=== PATIENT | female | born 2000 | race Caucasian/White ===

== ENCOUNTER 2024-12-10 14:55 | Outpatient (AMB) | payer OTHER, SELFPAY ==
--- NOTE | 2024-12-10 15:00 | A.OFFPC_ITS ---
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/PE last papsmear at [place] 05/28/24 Regional Account Manager Required: No Is last menstrual period known: Yes Last menstrual period: 11/14/24 Allergies No Known Allergies Allergy (Verified 12/15/24 20:35) Medication List - Last Reconciled 12/10/24 by Anna Villafana MD levonorgestrel-ethinyl estrad 0.1-20 mg-mcg (Vienva) 1 tab PO QAM metronidazole 0.75% appl topical BID sulfacetamide sodium-sulfur 10-5 % (w/w) topical DAILY Tobacco use date assessed: 12/10/24 Dental Screening Dental Screen Date: 12/10/24 Did you have a dental visit in the last 12 months?: Yes Did you have a dental problem in the last 6 months where you did not have access to dental care?: No Was dental information given to patient?: Patient has dentist 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 The patient reports experiencing generalized anxiety disorder, characterized by waking up with anxiety about various issues, which has been more pronounced recently due to academic pressures. She describes the anxiety as persistent, with no physical symptoms like palpitations, but mentions difficulty in controlling her thoughts. The anxiety does not interfere with her sleep, and she has not experienced panic attacks. The patient has a history of rosacea, for which she uses sulfacetamide and sunscreen as part of her management plan. She initiated treatment through a telehealth consultation and reports satisfactory results with the current regimen. Her past medical history includes an appendectomy performed in 2012, with no complications In terms of preventative care, the patient is up-to-date with her vaccinations, including COVID-19, Hepatitis B, MMR, Varicella, and Influenza. She had to repeat some vaccinations due to negative titers required for school. 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 1. Little interest or pleasure in doing things: not at all 2. Feeling down, depressed, or hopeless: not at all 3. Trouble falling or staying asleep, or sleeping too much: not at all 4. Feeling tired or having little energy: not at all 5. Poor appetite or overeating: not at all 6. Feeling bad about yourself - or that you are a failure or have let yourself or your family down: not at all 7. Trouble concentrating on things, such as reading the newspaper or watching television: not at all 8. Moving or speaking so slowly that other people could have noticed. Or the opposite - being so fidgety or restless that you have been moving around a lot more than usual: not at all 9. Thoughts that you would be better off or of hurting yourself in some way: not at all Total score: 0 Depression Screening Interpretation: Negative Depression Screening Done: Yes 24955 - PHQ-9 Billing: Yes Source: Developed by Drs. Ganesh Levin, Tisha Allen, Daquan Bashir and colleagues, with an educational capo from [employer]. Thrive Questionnaire Date Thrive assessed: 12/09/24 I am a: Patient What is your living situation today?: I have a steady place to live Within the past 12 months, did the food you bought not last and you didn't have the money to get more?: Never true Within the past 12 months, did you worry whether your food would run out before you got money to buy more?: Never true Do you have trouble paying for medicines?: No Do you have trouble getting transportation to medical appointments?: No Do you have trouble paying your heating and electricity bill?: No Do you have trouble taking care of your child, family member or friend?: No Do you have trouble with day-to-day activities such as bathing, preparing meals, shopping, managing finances, etc.?: No Are you currently unemployed and looking for a job?: I choose not to answer this question Are you interested in more education?: I choose not to answer this question Please select the resources that you would like help with: None Currently or been in a relationship where the following occur: No concerns reported THRIVE Score: 0 AUDIT C Alcohol Use Questionnaire (AUDIT-C) 1. How often do you have a drink containing alcohol?: Monthly or less 2. How many drinks containing alcohol do you have on a typical day when you are drinking?: 1 or 2 3. How often do you have six or more drinks on one occasion?: Never Total Score: 1 Score Reviewed/Action Taken: Yes ELIS-7 AMB Questionnaire ELIS-7 Date ELIS - 7 assessed: 12/10/24 Feeling nervous, anxious, or on edge: 3 = Nearly every day Not being able to stop or control worryin = More than half the days Worrying too much about different things: 2 = More than half the days Trouble relaxin = Several days Being so restless that it is hard to sit still: 0 = Not at all Becoming easily annoyed or irritable: 1 = Several days Feeling afraid as if something awful might happen: 1 = Several days Total ELIS-7 score (0-4 normal; 5-9 mild; 10-14 moderate; 15-21 severe): 10 Source: Developed by Drs. Ganesh Levin, Tisha Allen, Daquan Bashir and colleagues, with an educational capo from [employer]. ELIS-7 Assessment Billing ELIS-7 Assessment Tool: ELIS-7 Assessment 97868 (Referred to Priya for assistance in getting an appointment to see a therapist, wants telehealth) Review of Systems Const Denies body aches, Denies fatigue, Denies fever(s), Denies headache(s) and Denies weakness Eyes Details: [facility] Denies change in vision ENT Denies dizziness, Denies headache(s), Denies nasal congestion, Denies nasal discharge and Denies sore throat Card Denies chest pain, Denies lightheadedness, Denies palpitations and Denies dyspnea Resp Denies chest congestion, Denies cough, Denies dyspnea and Denies wheezing GI Denies abdominal pain, Denies change in bowel habits and Denies heartburn Denies hematuria, Denies urinary frequency, Denies dysuria and Denies urinary urgency Musc Reports no additional complaints Skin/Breast Denies breast pain, Denies breast mass, Denies lesions and Denies rash Neuro Denies dizziness, Denies headache(s) and Denies weakness Psych Reports as per HPI Endo Denies fatigue, Denies polydipsia, Denies polyuria and Denies palpitations Justin/Lymph Denies easy bruising Aller/Immun Denies seasonal rhinorrhea and Denies wheezing Physical exam (Primary Care) Vital Signs: Last Vital Signs Temp 98.6 F 12/10/24 15:09 Pulse 99 12/10/24 15:09 Resp 16 12/10/24 15:09 BP 110/60 12/10/24 15:09 Pulse Ox 99 12/10/24 15:09 Oxygen Delivery Method Room Air 12/10/24 15:09 BMI result Body Mass Index 24.9 Tobacco/Smoking Status: Tobacco use Status Tobacco use date assessed 12/10/24 12/10/24 15:17 Patient Tobacco Use Status Never used Tobacco 12/10/24 15:17 e-Cigarette/Vaping Use Never Used 12/10/24 15:17 PHQ-9: PHQ-9 Score PHQ-9: Total score 0 12/10/24 15:50 Depression Screening Interpretation: Negative Thrive Assessment: Date of Thrive Assessment Date Thrive assessed 12/09/24 12/10/24 15:01 Currently or been in a relationship where the following occur: No concerns r eported Advance Care Planning discussion: Completed/Scanned Date of discussion: 12/10/24 Who was present: patient Forms completed: Health Care Proxy Time spent: 16-45 minutes Actual minutes spent: 2 Const General: no acute distress and alert Orientation/consciousness: patient oriented x3 HENMT Ears: external ears normal, TM's normal bilaterally and EAC's normal General nose exam: Normal external nose present Mouth: Normal oral and palatal mucosa present and moist mucous membranes Eyes General: appearance normal, both eyes and all related structures Conjunctivae: conjunctivae normal Sclerae: sclerae normal Pupils: Equal, round and reactive pupils present EOM: EOMs intact bilaterally Neck Neck: Yes full ROM, Yes no lymphadenopathy and Yes supple Chest Chest palpation & inspection: normal inspection of the chest Breast/axilla palpation: normal palpation of the breasts and normal palpation of the axillae Resp Effort & Inspection: normal respiratory effort and able to speak in complete sentences Auscultation: clear to auscultation bilaterally Cardio Rate: regular rate Rhythm: regular rhythm Heart sounds: S1 normal heart sound present and S2 normal heart sound present GI Palpation (GI): Soft to palpation, nontender and no masses Auscultation: normal bowel sounds General: Yes deferred (Currently being seen at [facility] by Linda Caldwell CNM) Back/Spine/Pelvis Back: No back tenderness Skin General skin exam: no rashes or lesions noted Neuro General: patient oriented x3, gait normal, tone normal, moves all extremities and no focal motor deficits Cranial nerves: Yes Equal, round and reactive pupils present Cognition (Neuro): normal cognition Extrem General: Yes full ROM, Yes no joint enlargement, Yes no clubbing, cyanosis or edema and Yes no calf tenderness Psych Appearance: grossly normal and well kempt Mental Status: mental status grossly normal Speech and movement: Normal speech and movement present Affect: normal affect Coding Level of Care Code Est Pt Prev Care 18-39y(65068) Diagnoses Annual visit for general adult medical examination with abnormal findings Z00.01 Generalized anxiety disorder F41.1 Rosacea L71.9 Additional Codes ELIS-7 Assessment Billing - ELIS-7 Assessment Tool: ELIS-7 Assessment 92257 ([id number]) PHQ-9 - 04227 - PHQ-9 Billing: Yes ([id number]) Vital Signs *Quality* - Advance Care Planning discussion: Completed/Scanned ([id number]) Vital Signs *Quality* - Time spent: 16-45 minutes ([id number]) Assessment & Plan Assessment & Plan (1) Annual visit for general adult medical examination with abnormal findings: Code(s): Z00.01 - Encounter for general adult medical examination with abnormal findings Plan: Will check appropriate labs. Recommended dental visit every 6 months and regular eye exams, at least every 2 years. Take adequate calcium in diet and vitamin-D 3 at 2000 IU per cap once a day, in addition to weight-bearing exercises to help maintain good muscle tone and weight control. Instructed to do self-breast exam, and recommended to get yearly mammogram, starting at age 40. Patient declined cervical cancer screening at present, up-to-date with vaccines (2) Generalized anxiety disorder: Code(s): F41.1 - Generalized anxiety disorder Category: Medical Plan: Referred to Priya Arceo, a mental health coordinator, for assistance in getting in to be seen by therapist, requesting telehealth visit (3) Rosacea: Code(s): L71.9 - Rosacea, unspecified Category: Medical Plan: Currently using metronidazole 0.75% cream Orders: Orders Alanine Aminotransferase 12/10/24 F41.1 - Generalized anxiety disorder, Z00.01 - Encounter for general adult medical examination with abnormal findings, Z13.1 - Encounter for screening for diabetes mellitus, Z13.220 - Encounter for screening for lipoid disorders Basic Metabolic Panel Fasting 12/10/24 F41.1 - Generalized anxiety disorder, Z00.01 - Encounter for general adult medical examination with abnormal findings, Z13.1 - Encounter for screening for diabetes mellitus, Z13.220 - Encounter for screening for lipoid disorders Lipid Panel 12/10/24 F41.1 - Generalized anxiety disorder, Z00.01 - Encounter for general adult medical examination with abnormal findings, Z13.1 - Encounter for screening for diabetes mellitus, Z13.220 - Encounter for screening for lipoid disorders Vitamin D 25-OH Total 12/10/24 F41.1 - Generalized anxiety disorder, Z00.01 - Encounter for general adult medical examination with abnormal findings, Z13.1 - Encounter for screening for diabetes mellitus, Z13.220 - Encounter for screening for lipoid disorders Aspartate Amino Transferase 12/10/24 F41.1 - Generalized anxiety disorder, Z00.01 - Encounter for general adult medical examination with abnormal findings, Z13.1 - Encounter for screening for diabetes mellitus, Z13.220 - Encounter for screening for lipoid disorders Complete Blood Count Auto Diff 12/10/24 F41.1 - Generalized anxiety disorder, Z00.01 - Encounter for general adult medical examination with abnormal findings, Z13.1 - Encounter for screening for diabetes mellitus, Z13.220 - Encounter for screening for lipoid disorders
[2024-12-10 15:09] VITALS: BP 110/60; PULSE 99; RESP 16; TEMP 37; O2SAT 99; BMI 24.9
== END 2024-12-10 15:54 | disposition home or self-care (01) ==
LOC: HO.HMCC 14:56
PROVIDERS: PCP Internal Medicine; Visit Provider Internal Medicine
DX: Z00.01 Encounter for general adult medical examination with abnormal findings (principal); F41.1 Generalized anxiety disorder; L71.9 Rosacea, unspecified; Z00.00 Encounter for general adult medical examination without abnormal findings

== ENCOUNTER → 2024-12-10 14:55 | Outpatient (BNVA) | payer OTHER, SELFPAY | PROVIDERS: PCP Internal Medicine; Visit Provider Internal Medicine | DX: Z00.01 Encounter for general adult medical examination with abnormal findings (principal); F41.1 Generalized anxiety disorder; L71.9 Rosacea, unspecified | CPT/HCPCS: 96127 ==

== ENCOUNTER 2025-02-24 06:50 | Outpatient (REF) | payer OTHER, SELFPAY ==
--- OUTSIDE RECORDS SUMMARY | 2025-02-24 06:52 | XMS_ITS | Clinical Summary ---
Author Organization [address] [facility] Address [address] [place] [phone] Phone Care Team Providers Care Computer Artist Name Role Phone Physician, No Pcp Primary Care Provider Unavaila ble Allergies No known active allergies Medications Vienva 0.1-20 mg-mcg per tablet Take 1 tablet by mouth 1 (one) time each day in the morning. 28 tablet 12 05/28/2024 Active Surgical History Surgery Date Site/Laterality Comments APPENDECTOMY Medical History Medical History Date Comments No pertinent past medical history Family History Medical History Relation Name Comments Heart disease Father Relation Name Status Comments Father Maternal Grandfather Maternal Grandmother Mother Alive Paternal Grandfather Alive Paternal Grandmother Alive Sister Alive Social History Tobacco Use Types Packs/Day Years Used Date Smoking Tobacco: Never Smokeless Tobacco: Never Alcohol Use Standard Drinks/Week Comments Never 0 (1 standard drink = 0.6 oz pur e alcohol) Comments No Sex and Gender Information Value Date Recorded Sex Assigned at Not on file Legal Sex Female 9:23 AM EST Gender Identity Not on file Sexual Orientation Not on file Obstetrics History Para Term AB IAB SAB Ectopic Multiple Livin g Live Births 0 0 0 0 0 0 0 0 Last Filed Vital Signs Vital Sign Reading Time Taken Comments Blood Pressure 109/85 05/28/2024 1:54 PM EDT Pulse 74 05/28/2024 1:54 PM EDT Temperature - - Respiratory Rate 18 05/28/2024 1:54 PM EDT Oxygen Saturation - - Inhaled Oxygen Concentration - - Weight 90.6 kg (199 lb 12.8 oz) 05/28/2024 1:54 PM EDT Height 170.2 cm (5' 7 ) 05/28/2024 1:54 PM EDT Body Mass Index 31.29 05/28/2024 1:54 PM EDT Plan of Treatment Health Maintenance Due Date Last Done Comments HPV Vaccines (1 - 3-dose series) 12/02/2014 Depression Screening 02/28/2024 HIV Screening 03/13/2024 Hepatitis C Screening 03/13/2024 Social Influencers of Health Screening 03/13/2024 COVID-19 Vaccine ( season) 2024 12/12/2023, 03/14/2021, 07/14/2020, Additional history exists Influenza Vaccine (#1) 2024 , 03/14/2021, 02/25/2020 Cervical Cancer Screening: Pap Smear 05/29/2027 05/28/2024 DTaP,Tdap,and Td Vaccines (2 - Td or Tdap) 07/09/2031 07/08/2021 RSV Immunization Adult Patients (1 - 1-dose 75+ series) 12/02/2074 Hepatitis B Vaccines Completed 12/12/2023, 10/30/19 24 MMR Vaccines Aged Out 12/18/2023 No longer eligi ble based on patient's age to complete this topic Varicella Vaccines Aged Out 12/18/2023 No longer eligible based on patient's age to complete this topic HIB Vaccines Aged Out No longer eligi ble based on patient's age to complete this topic Hepatitis A Vaccines Aged Out No long er eligible based on patient's age to complete this topic IPV Vaccines Aged Out No longer eligi ble based on patient's age to complete this topic Meningococcal ACWY Vaccine Aged Out N o longer eligible based on patient's age to complete this topic Meningococcal B Vaccine Aged Out No l onger eligible based on patient's age to complete this topic Pneumococcal Vaccine: Pediatrics (0 to 5 Years) and At-Risk Patients (6 to 49 Years) Aged Out No longer eligible based on patient's age to complete this topic RSV Immunization Patients Under 20 months Aged Out No longer eligible based on patient's age to complete this topic Procedures Procedure Name Priority Date/Time Associated Diagnosis Comments PAP SMEAR Routine 05/28/2024 2:29 PM EDT Encounter for annual physical examination excluding gynecological examination in a patient older than 17 years from Last 3 Months or Most Recently Relevant to Health Maintenance Results * Pap smear (05/28/2024 2:29 PM EDT) Interpretation Negative for intraepithelial lesion or malignancy 05/30/2024 9:[address] [facility] at 0938 EDT General Categorization Negative 05/30/2024 9:[address] [facility] LMP 05/13/2024 05/30/2024 9:[address] [facility] Specimen Adequacy Satisfactory for evaluation, endocervical/hendrix sformation zone component present 05/30/2024 9:[address] [facility] Pap Methodology Liquid Based Pap Test 05/30/2024 9:[address] [facility] Disclaimer The Pap test is a screening test which carries an inherent false negative rate. These test results should be correlated with the patient's clinical findings and history. This Pap test was processed using an automated screening system. Technical cytopathology services provided by [facility], at [address] [place] [address] (CLIA # [id number]/Lucio Cummings MD, Director Dietetics Department.) 05/30/2024 9:[address] [facility] Console Pap Interpretation Reported 05/30/2024 9:[address] [facility] Brushing/Spatula Cervix uteri structure / Unknown 05/28/2024 2:29 PM EDT 05/28/2024 2:29 PM EDT Linda Caldwell CNM LAB CYTOLOGY ORDERABLES Dana hayes Result [facility] [address] [place] [address], from Last 3 Months or Most Recently Relevant to Health Maintenance Insurance [facility] Care Teams Computer Artist Relationship Specialty Start Date End Date Physician, No Pcp PCP - General 03/13/24
[2025-02-24 10:18] LABS: MANUAL DIFF FLAG NO
[2025-02-24 10:40] LABS: Hematocrit 40.5 % (37.0-47.0); Hemoglobin 13.4 g/dl (12.0-16.0); Imm Gran Abs Auto 0.01 X10*3/uL (0.00-0.03); Imm Gran Pct Auto 0.1 % (0.0-0.4); Lymphocytes Absolute Auto 3.3 X10*3/uL (1.2-4.9); Mean Corpuscular HGB Conc 33.1 g/dl (31.0-35.0); Mean Corpuscular Hemoglobin 31.3 pg (27.0-33.0); Mean Corpuscular Volume 94.6 fL (80.0-98.0); NRBC Abs Auto 0.000 X10*3/uL (0.0-0.012); NRBC Pct Auto 0.0 /100WBC (0.0-0.2); Platelet Count 305 X10*3/uL (160-400); Red Blood Count 4.28 X10*6/uL (4.20-5.50); White Blood Count 6.9 X10*3/uL (4.8-10.8)
[2025-02-24 11:06] LABS: Alanine Aminotransferase 16 U/L (0-31); Anion Gap 10 (12-20); Aspartate Amino Transferase 25 U/L (5-31); Blood Urea Nitrogen 16 mg/dL (9-16); Calcium 9.0 mg/dL (8.4-10.2); Carbon Dioxide 26 mmol/L (22-29); Chloride 109 mmol/L (96-108); Cholesterol 142 mg/dL (<200); Estimated Glomerular Filt Rate > 60; HDL Cholesterol 38 mg/dL (>40); Potassium 4.0 mmol/L (3.3-5.1); Sodium 141 mmol/L (135-145); Triglycerides 81 mg/dL (<150)
== END 2025-02-24 06:51 ==
LOC: HO.HMGCLDS 06:50
PROVIDERS: PCP Internal Medicine; Visit Provider Internal Medicine
DX: Z00.00 Encounter for general adult medical examination without abnormal findings (principal); F41.1 Generalized anxiety disorder; Z13.220 Encounter for screening for lipoid disorders; Z13.1 Encounter for screening for diabetes mellitus; Z11.1 Encounter for screening for respiratory tuberculosis; Z13.6 Encounter for screening for cardiovascular disorders; Z13.21 Encounter for screening for nutritional disorder
CPT/HCPCS: 36415; 80048; 80061; 82306; 84450; 84460; 85025; 86480